=== PATIENT | male | born 1950 | race Caucasian/White ===

== ENCOUNTER 2017-09-05 10:35 | Inpatient (IN) | payer OTHER, MEDICAID | END 2017-09-05 11:20 | disposition home or self-care (01) | DRG 552 | LOC: REC 10:35 | DX: M50.00 Cervical disc disorder with myelopathy, unspecified cervical region (principal); Z53.09 Procedure and treatment not carried out because of other contraindication ==

== ENCOUNTER 2017-09-13 07:04 | Inpatient (IN) | payer OTHER, MEDICAID ==
[2017-09-13] MEDS: AMLODIPINE 5 MG TAB PO (06:00)
[2017-09-13] MEDS: FENOFIBRATE 145 MG TAB PO (06:00)
[2017-09-13] MEDS: CITALOPRAM 20 MG TAB PO (06:00)
[~2017-09-13 07:04] MED LIST: METOCLOPRAMIDE 10 MG INJ
[2017-09-13 09:33] LABS: ADD MAN DIFF? NO
[2017-09-13 09:42] LABS: BASOPHILS % 0.5 % (0.0-2.0); EOSINOPHILS # 0.2 10^3/ul (0.0-0.5); EOSINOPHILS % 5.9 % (0.0-7.0); HEMATOCRIT 34.3 % (42.0-52.0); HEMOGLOBIN 12.3 g/dl (14.0-18.0); LYMPHOCYTES # 1.7 10^3/ul (0.8-2.9); LYMPHOCYTES % 42.3 % (15.0-51.0); MEAN CORPUSCULAR HEMOGLOBIN 29.1 pg (29.0-33.0); MEAN CORPUSCULAR HGB CONC 35.9 g/dl (32.0-37.0); MEAN CORPUSCULAR VOLUME 81.1 fl (82.0-101.0); MEAN PLATELET VOLUME 11.3 fl (7.4-10.4); MONOCYTE # 0.4 10^3/ul (0.3-0.9); MONOCYTES % 9.1 % (0.0-11.0); NEUTROPHIL # 1.7 10^3/ul (1.6-7.5); NEUTROPHILS % 41.5 % (39.0-77.0); PLATELET COUNT 108 10^3/UL (140-415); RED BLOOD COUNT 4.23 10^6/ul (4.70-6.10); RED CELL DISTRIBUTION WIDTH 13.3 % (11.5-14.5)
[2017-09-13 09:42] LABS: WHITE BLOOD COUNT 4.1 10^3/ul (4.8-10.8)
[2017-09-13 09:48] LABS: HOLD TRANSMISSIONS 1
[2017-09-13 10:05] LABS: ALANINE AMINOTRANSFERASE 74 IU/L (13-69); ALBUMIN 4.5 g/dl (3.3-4.9); ALKALINE PHOSPHATASE 48 IU/L (42-121); ANION GAP 22 (8-16); ASPARTATE AMINO TRANSFERASE 60 IU/L (15-46); BILIRUBIN,INDIRECT 0.2 mg/dl (0-1.1); BILIRUBIN,TOTAL 0.2 mg/dl (0.2-1.3); CARBON DIOXIDE 24 mmol/L (21-31); CHLORIDE 101 mmol/L (97-110); GLUCOSE 182 mg/dl (70-220)
[2017-09-13 10:07] LABS: BLOOD UREA NITROGEN 9 mg/dl (7-20); CALCIUM 9.9 mg/dl (8.4-10.2); CREATININE 0.87 mg/dl (0.61-1.24); POTASSIUM 4.1 mmol/L (3.5-5.1); SODIUM 143 mmol/L (135-144)
[2017-09-13 10:22] LABS: INR 1.02; PROTIME 13.5 Sec (11.9-14.9); PT RATIO 1.1
[2017-09-13 10:31] LABS: PARTIAL THROMBOPLASTIN TIME 29.2 Sec (25.0-35.0)
[2017-09-13] MEDS ORDERED: OXYCODONE/ACETAMINOPHEN (5/325) TAB PO ×2 (11:00)
[2017-09-13] MEDS ORDERED: DIPHENHYDRAMINE 50 MG INJ IV (11:00)
[2017-09-13] MEDS ORDERED: MIDAZOLAM 1 MG/ML 2 ML INJ IV (11:00)
[2017-09-13] MEDS ORDERED: KETOROLAC 30 MG INJ IV (11:00)
[2017-09-13] MEDS ORDERED: EPHEDrine SULFATE 50 MG/5 ML SYG IV (11:00)
[2017-09-13] MEDS ORDERED: ALBUTEROL 0.083% (NEB) 2.5 MG/3 ML AMP HHN (11:00)
[2017-09-13] MEDS ORDERED: LABETALOL HCL 20MG INJ IV (11:00)
[2017-09-13] MEDS ORDERED: HYDROmorphONE (0.2 MG/ML) 10ML SYG IV ×2 (11:00)
[2017-09-13] MEDS ORDERED: FENTAnyl 50 MCG/ML VIAL IV ×2 (11:00)
[2017-09-13] MEDS ORDERED: hydrALAzine 20 MG INJ IV (11:00)
[2017-09-13] MEDS ORDERED: ROCURONIUM 50 MG INJ ×3 (11:04→15:19)
[2017-09-13] MEDS ORDERED: PROPOFOL 20 ML (11:04)
[2017-09-13] MEDS ORDERED: FENTAnyl 50 MCG/ML VIAL (11:05)
[2017-09-13] MEDS ORDERED: morphine 10 MG INJ (11:23)
[2017-09-13] MEDS ORDERED: DEXAMETHASONE 4 MG/ML 1 ML INJ (11:51)
[2017-09-13] MEDS: BUPIVACAINE 0.5% (SDV) 30 ML INJ (12:13)
[2017-09-13] MEDS: POLYMYXIN/BACITRACIN 1L IRRIG (12:13)
[2017-09-13] MEDS: LIDOCAINE 1%/EPI 30 ML INJ (12:14)
[2017-09-13] MEDS: THROMBIN 5000 UNIT VIAL (12:14)
[2017-09-13] MEDS: GELATIN SIZE 100 SPONGE (12:17)
[2017-09-13] MEDS ORDERED: SUGAMMADEX SODIUM 200 MG/2 ML VIAL IV (15:15)
[2017-09-13] MEDS ORDERED: CEFAZOLIN 1 GM INJ (15:19)
[2017-09-13] MEDS ORDERED: LIDOCAINE 2% (SDV) 5 ML INJ (15:20)
[2017-09-13] MEDS ORDERED: ONDANSETRON 4 MG INJ IV (16:00)
[2017-09-13] MEDS ORDERED: NALOXONE (0.4 MG/ML) INJ IV (16:00)
[2017-09-13] MEDS ORDERED: BISACODYL 10 MG SUPP PR (16:00)
[2017-09-13] MEDS: FENTAnyl 50 MCG/ML VIAL IV (16:05)
[2017-09-13] MEDS: ONDANSETRON 4 MG INJ IV (16:05)
[2017-09-13] MEDS: MEPERIDINE 25 MG INJ IV (16:06)
[2017-09-13] MEDS ORDERED: GLUCAGON 1 MG INJ IM (16:30)
[2017-09-13] MEDS ORDERED: GLUCOSE GEL 15 GRAM TUBE PO ×2 (16:30)
[2017-09-13] MEDS ORDERED: GLUCOSE GEL 15 GRAM TUBE BUCCAL (16:30)
[2017-09-13] MEDS ORDERED: DEXTROSE 50% 50 ML SYRINGE IV ×2 (16:30→16:31)
[2017-09-13] MEDS: HYDROmorphONE (0.2 MG/ML) 10ML SYG IV (16:40)
[2017-09-13] MEDS: CEFAZOLIN 1 GM/50 ML (PMX) 50 ML IVPB ×2 (16:56→23:56)
[2017-09-13] MEDS: INSULIN ASPART [NOVOLOG] 3 ML PEN SC ×2 (18:53→21:40)
[2017-09-13] MEDS: RANOLAZINE (SR) 500 MG TAB PO ×2 (20:26→22:39)
[2017-09-13] MEDS: BENAZEPRIL 40 MG TAB PO (20:27)
[2017-09-13] MEDS: QUETIAPINE 100 MG TAB PO (20:29)
[2017-09-13] MEDS: CYCLOBENZAPRINE 10 MG TAB PO (20:33)
[2017-09-13] MEDS: INSULIN GLARGINE [LANtus] 3 ML PEN SC (20:40)
[2017-09-13] MEDS: metFORMIN 850 MG TAB PO (21:19)
[2017-09-13] MEDS: DIVALPROEX (ER) 500 MG TAB PO (21:20)
[2017-09-13] MEDS: HYDROCODONE/APAP (10/325) TAB PO ×2 (21:20→22:00)
[2017-09-13] MEDS: DOCUSATE SODIUM 100 MG CAP PO (21:33)
[2017-09-13] MEDS: HYPOGLYCEMIA PROTOCOL when Glucose is <70 mg/dL or symptomatic <90 mg/dL. XX (22:25)
[2017-09-13] MEDS: 1/2 NS + KCL 20 MEQ 1,000 ML IV (22:38)
[2017-09-14] MEDS: 1/2 NS + KCL 20 MEQ 1,000 ML IV ×2 (00:05→11:42)
[2017-09-14] MEDS: HYDROCODONE/APAP (10/325) TAB PO ×2 (03:49→10:13)
[2017-09-14] MEDS: PANTOPRAZOLE (EC) 40 MG TAB PO (05:26)
[2017-09-14] MEDS: DIVALPROEX (ER) 500 MG TAB PO (08:28)
[2017-09-14] MEDS: CEFAZOLIN 1 GM/50 ML (PMX) 50 ML IVPB (08:28)
[2017-09-14] MEDS: GLIMEPIRIDE 4 MG TAB PO (08:29)
[2017-09-14] MEDS: DOCUSATE SODIUM 100 MG CAP PO (08:29)
[2017-09-14] MEDS: AMLODIPINE 5 MG TAB PO (08:29)
[2017-09-14] MEDS: RANOLAZINE (SR) 500 MG TAB PO (08:29)
[2017-09-14] MEDS: CITALOPRAM 20 MG TAB PO (08:29)
[2017-09-14] MEDS: FENOFIBRATE 145 MG TAB PO (08:29)
[2017-09-14] MEDS: BENAZEPRIL 40 MG TAB PO (08:29)
[2017-09-14] MEDS: HYDROmorphONE 0.5 MG/0.5 ML SYG IV ×2 (08:36→15:54)
[2017-09-14] MEDS: metFORMIN 850 MG TAB PO (10:13)
[2017-09-14] MEDS: OXYCODONE/ACETAMINOPHEN (10/325) TAB PO (14:17)
[2017-09-14] MEDS: oxyCODONE 5 MG TAB PO (18:08)
[2017-09-14] MEDS ORDERED: INFLUENZA VIRUS VACCINE 0.5 ML SYG IM* (18:30)
[2017-09-14] MEDS ORDERED: QUETIAPINE 100 MG TAB PO (21:00)
[2017-09-15] MEDS ORDERED: QUETIAPINE 100 MG TAB PO ×2 (09:00→11:50)
== END 2017-09-14 18:27 | DRG 473 ==
LOC: REC 07:04 → TEL 22:25
PROVIDERS: Neurological Surgery
PROC: 0RG20A0 Fusion of 2 or more Cervical Vertebral Joints with Interbody Fusion Device, Anterior Approach, Anterior Column, Open Approach (ICD-10-PCS; principal; 2017-09-13 11:03)
PROC: 0RT30ZZ Resection of Cervical Vertebral Disc, Open Approach (ICD-10-PCS; 2017-09-13 11:03)
DX: M50.021 Cervical disc disorder at C4-C5 level with myelopathy (principal); M48.02 Spinal stenosis, cervical region; I10 Essential (primary) hypertension; E11.9 Type 2 diabetes mellitus without complications; I25.10 Atherosclerotic heart disease of native coronary artery without angina pectoris; F31.9 Bipolar disorder, unspecified; Z72.0 Tobacco use
CPT/HCPCS: 72050; 80053; 82962; 85025; 85610; 85730; 86850; 86900; 86901; 87086; 90686; 93005; 97163

== ENCOUNTER 2018-01-26 13:10 | Emergency (ER) | payer OTHER ==
[2018-01-26] MEDS: SOD CHLORIDE 0.9% 1,000 ML IV (14:37)
[2018-01-26 14:40] LABS: ADD MAN DIFF? NO
[2018-01-26 14:52] LABS: BASOPHILS % 0.3 % (0.0-2.0); EOSINOPHILS # 0.1 10^3/ul (0.0-0.5); HEMATOCRIT 35.4 % (42.0-52.0); HEMOGLOBIN 12.2 g/dl (14.0-18.0); IMMATURE GRANS #M 0.06 10^3/ul; IMMATURE GRANS % (M) 0.8 %; LYMPHOCYTES # 1.7 10^3/ul (0.8-2.9); LYMPHOCYTES % 24.2 % (15.0-51.0); MEAN CORPUSCULAR HEMOGLOBIN 27.1 pg (29.0-33.0); MEAN CORPUSCULAR HGB CONC 34.5 g/dl (32.0-37.0); MEAN CORPUSCULAR VOLUME 78.5 fl (82.0-101.0); MEAN PLATELET VOLUME 9.7 fl (7.4-10.4); MONOCYTE # 0.5 10^3/ul (0.3-0.9); MONOCYTES % 7.3 % (0.0-11.0); NEUTROPHIL # 4.7 10^3/ul (1.6-7.5); NEUTROPHILS % 65.4 % (39.0-77.0); PLATELET COUNT 153 10^3/UL (140-415); RED BLOOD COUNT 4.51 10^6/ul (4.70-6.10); RED CELL DISTRIBUTION WIDTH 14.4 % (11.5-14.5)
[2018-01-26 14:52] LABS: WHITE BLOOD COUNT 7.1 10^3/ul (4.8-10.8)
[2018-01-26 15:00] LABS: ALANINE AMINOTRANSFERASE 72 IU/L (13-69); ALBUMIN 4.8 g/dl (3.3-4.9); ALKALINE PHOSPHATASE 37 IU/L (42-121); ANION GAP 20 (8-16); ASPARTATE AMINO TRANSFERASE 53 IU/L (15-46); BILIRUBIN,INDIRECT 0.2 mg/dl (0-1.1); BILIRUBIN,TOTAL 0.2 mg/dl (0.2-1.3); BLOOD UREA NITROGEN 10 mg/dl (7-20); CALCIUM 9.8 mg/dl (8.4-10.2); CARBON DIOXIDE 20 mmol/L (21-31); CHLORIDE 103 mmol/L (97-110); CREATININE 0.71 mg/dl (0.61-1.24); GLUCOSE 171 mg/dl (70-220); LIPASE 341 U/L (23-300); POTASSIUM 4.5 mmol/L (3.5-5.1); SODIUM 138 mmol/L (135-144); TOTAL PROTEIN 7.2 g/dl (6.1-8.1)
== END 2018-01-26 16:44 | disposition home or self-care (01) ==
LOC: E/R 13:10
DX: E86.0 Dehydration (principal); I10 Essential (primary) hypertension; E11.9 Type 2 diabetes mellitus without complications; Z79.4 Long term (current) use of insulin
CPT/HCPCS: 36415; 80053; 83690; 85025; 99284-25

== ENCOUNTER 2018-02-14 10:33 | Emergency (ER) | payer OTHER | END 2018-02-14 13:04 | disposition home or self-care (01) | LOC: FTE 10:33 | DX: M54.2 Cervicalgia (principal); I10 Essential (primary) hypertension; E11.9 Type 2 diabetes mellitus without complications; F17.210 Nicotine dependence, cigarettes, uncomplicated; Z79.4 Long term (current) use of insulin | CPT/HCPCS: 99283 ==

== ENCOUNTER 2018-08-30 11:20 | Emergency (ER) | payer OTHER ==
[2018-08-30] MEDS: METHOCARBAMOL 750 MG TAB PO (13:05)
[2018-08-30] MEDS: DEXAMETHASONE 10 MG/ML 1 ML INJ IM (13:05)
== END 2018-08-30 13:29 | disposition home or self-care (01) ==
LOC: FTE 13:29
DX: M54.42 Lumbago with sciatica, left side (principal); M54.41 Lumbago with sciatica, right side; I10 Essential (primary) hypertension; E11.9 Type 2 diabetes mellitus without complications; Z79.4 Long term (current) use of insulin
CPT/HCPCS: 99283

== ENCOUNTER 2018-09-08 11:49 | Emergency (ER) | payer SELFPAY, OTHER | END 2018-09-08 15:00 | disposition left against medical advice (07) | LOC: FTE 11:49 | DX: Z53.21 Procedure and treatment not carried out due to patient leaving prior to being seen by health care provider (principal) ==